=== PATIENT | female | born 1995 | race Hispanic/Latino ===

== ENCOUNTER 2017-07-16 22:03 | Outpatient (CLI) | payer MEDICAID ==
[2017-07-16 22:20] VITALS: BP 118/71
[2017-07-16] MEDS ORDERED: LACTATED RINGERS 500 ML IV ONE (22:24)
[2017-07-16 23:03] LABS: Bilirubin,Urine NEG (Negative); Blood,Urine NEG (Negative); Color,Urine Yellow (Yellow); Mucus,Urine FEW /HPF; Nitrite,Urine NEG (Negative); Protein,Urine <15 mg/dL mg/dL (Negative)
== END 2017-07-16 23:28 | disposition home or self-care (01) ==
LOC: TRG 22:03
PROVIDERS: ATTEND Obstetrics & Gynecology
DX: O42.92 Full-term premature rupture of membranes, unspecified as to length of time between rupture and onset of labor (principal); O26.893 Other specified pregnancy related conditions, third trimester; Z3A.31 31 weeks gestation of pregnancy
CPT/HCPCS: 59025; 81001

== ENCOUNTER 2017-09-19 13:47 | Outpatient (CLI) | payer MEDICAID ==
[2017-09-19 14:38] VITALS: BP 109/63
[2017-09-19] MEDS ORDERED: VISTARIL PO PRN (17:46)
[2017-09-19] MEDS ORDERED: VISTARIL ONE (17:51)
== END 2017-09-19 17:56 | disposition home or self-care (01) ==
LOC: TRG 13:47
PROVIDERS: ATTEND Obstetrics & Gynecology
DX: O48.0 Post-term pregnancy (principal); Z3A.40 40 weeks gestation of pregnancy
CPT/HCPCS: 59025; Q0177

== ENCOUNTER 2017-09-20 04:33 | Inpatient (IN) | payer MEDICAID ==
[2017-09-20] MEDS ORDERED: NORMOSOL-R PH 7.4 1,000 ML IV ONE (05:03)
[2017-09-20] MEDS ORDERED: PITOCin/NS 20 UNIT/1000ML DRIP 20 UNITS/1,000 ML BAG IV SCH (06:00)
[2017-09-20] MEDS: NORMOSOL-R PH 7.4 1,000 ML IV SCH ×2 (06:11→08:26)
[2017-09-20 06:16] LABS: Hematocrit 32.9 % (30.3-42.9); Hemoglobin 10.2 gm/dl (10.1-14.3); Mean Corpuscular HGB Conc 31 % (30-34); Mean Corpuscular Volume 77 fl (79-97); Platelet Count 273 K/mm3 (140-440); Red Blood Count 4.27 M/mm3 (3.65-5.03)
[2017-09-20 06:30] LABS: Mean Corpuscular Hemoglobin 24 pg (28-32)
[2017-09-20] MEDS ORDERED: XYLOCAINE MPF 2% ONE (07:23)
--- NOTE | 2017-09-20 07:38 | Anesthesia Consultation ---
Anesthesia Consult and Med Hx Date of service: 09/20/17 - Airway Anesthetic Teeth Evaluation: Good ROM Head & Neck: Adequate Mental/Hyoid Distance: Adequate Mallampati Class: Class I Intubation Access Assessment: Good - Pulmonary Exam CTA: Yes - Cardiac Exam Cardiac Exam: RRR - Pre-Operative Health Status ASA Pre-Surgery Classification: ASA2 - Pulmonary Hx Asthma: No COPD: No Hx Pneumonia: No - Cardiovascular System Hx Hypertension: No - Central Nervous System Hx Seizures: No Hx Psychiatric Problems: No - Endocrine Hx Renal Disease: No Hx End Stage Renal Disease: No Hx Hypothyroidism: No Hx Hyperthyroidism: No - Hematic Hx Anemia: No Hx Sickle Cell Disease: No - Other Systems Hx Alcohol Use: No
--- NOTE | 2017-09-20 07:39 | Anesthesia Day of Surgery ---
Anesthesia Day of Surgery - Day of Surgery Patient Examined: Yes Patient H&P Reviewed: Yes Patient is NPO: Yes
[2017-09-20] MEDS ORDERED: fentaNYL-BUPIV 2 MCG/ML-0.125% 200 MCG/100 ML BAG EPIDURAL SCH (08:00)
[2017-09-20] MEDS ORDERED: NARCAN 2 MG/2 ML IV PRN (08:00)
[2017-09-20] MEDS ORDERED: ePHEDrine SULFATE IV PRN (08:00)
--- NOTE | 2017-09-20 08:08 | History and Physical Report ---
History of Present Illness Date of examination: 09/20/17 Date of admission: 09/20/17 05:20 History of present illness: 22 yo second trimester U/S scan EDC 09/13/17 @ 41 weeks gestation, presented last night active labor. Progressed to 6cm. Recently received epidural anesthesia. First trimester entry at 11 weeks gestation. course complicated by nausea and vomiting with Diiclegis, Obesity with NL early and second trimester GCT. 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 Rubella non-immune and GBS negative. Past History Past Medical History: no pertinent history Past Surgical History: no surgical history [employer] History: herpes Family/Genetic History: diabetes, hypertension - Obstetrical History : 2 Medications and Allergies Allergies Allergy/AdvReac Type Severity Reaction Status Date / Time No Known Allergies Allergy Verified 06/30/15 01:34 Home Medications Medication Instructions Recorded Confirmed Last Taken Type No Known Home Medications [No 09/20/17 09/20/17 Unknown History Reported Home Medications] Active Meds: Active Medications Ephedrine Sulfate (Ephedrine Sulfate) 10 mg IV Q2M PRN PRN Reason: Hypotension Parenteral Electrolytes (Normosol-R Ph 7.4) 1,000 mls @ 125 mls/hr IV DIRECT EDUARDO Last Admin: 09/20/17 06:11 Dose: 999 mls/hr Oxytocin/Sodium Chloride (Pitocin/Ns 20 Unit/1000ml Drip) 20 units in 1,000 mls @ 125 mls/hr IV DIRECT EDUARDO Fentanyl/Bupivacaine/Sodium Chlor (Fentanyl-Bupiv 2 Mcg/Ml-0.125%) 200 mcg in 100 mls @ 12 mls/hr EPIDURAL TITR EDUARDO; Protocol Naloxone HCl (Narcan 2 Mg/2 Ml) 0.2 mg IV Q5M PRN PRN Reason: Respiratory sedation Review of Systems All systems: negative Genitourinary: normal appearance, leakage of fluid, contractions, no vaginal bleeding, no genital sores - Vital Signs Vital signs: Vital Signs Temp Resp 97.5 F L 18 09/20/17 04:39 09/20/17 04:39 Temp Pulse Resp BP Pulse Ox 99.6 F 103 H 20 98/58 09/20/17 05:40 09/20/17 08:04 09/20/17 05:40 09/20/17 08:04 - Physical Exam Breasts: Positive: deferred Abdomen: Positive: normal appearance, soft Genitourinary (Female): Positive: normal external genitalia, normal perenium. Negative: perineal/vulvar lesions Vagina: Positive: normal moisture - Obstetrical FHR: category 2 FHR comments: Category 2, minimal variability, tachycardia Multiple doses of ephedrine given post epidural for hypotension Cervical Dilatation: 7 Cervical Effacement Percentage: 80 station: -2 Uterine Contraction Pattern: Irregular Uterine Tone Measurement Phase: Resting Uterine Contraction Intensity: Mild Results Result Diagrams: 09/20/17 05:00 Abnormal lab results 09/20/17 Range/Units 05:00 WBC 16.0 H (4.5-11.0) K/mm3 MCV 77 L (79-97) fl MCH 24 L (28-32) pg RDW 17.0 H (13.2-15.2) % All other labs normal. Assessment and Plan A: IUP at 41 weeks Transitional Labor P: Pitocin augmentation [address]
[2017-09-20] MEDS ORDERED: PITOCin/NS 30 UNIT/500ML 30 UNITS/500 ML BAG IV SCH (09:00)
--- NOTE | 2017-09-20 10:35 | Procedure Note ---
OB Delivery Note - Delivery Date of Delivery: 09/20/17 (7-2oz female @ 1018) Surgeon: ANGELITO GARCES Estimated blood loss: 100cc - Vaginal Delivery presentation: vertex Delivery position: OA Intrapartum events: decreased FHT variability, extend. tachycardia, shoulder dystocia (deliveryed vtx at end of contraction, minimal maternal effort with delivery of shoulders. Dystocia [place] initiated including suprapubic pressure and Ruben for successful delivery of right shoulder in approximately one minute) Delivery induction: none Delivery augmentation: rupture of membranes, pitocin Delivery monitor: external FHT, external uterine Route of delivery: Delivery placenta: spontaneous Delivery cord: 3 umbilical vessels Episiotomy: none Delivery laceration: none Anesthesia: epidural - Infant A at 1 minute: 7 Infant Gender: Female (Pushed for viable female, dystocia as noted. Stimulated to cry, bulb suctioned and placed skin to skin. NICU team present at delivery. Spont. placenta. Pitocin infusing, cord blood collected. Fundus messaged firm, bleeding small. No lacerations noted. Infant moves and flexes right arm freely without limitations.)
[2017-09-20] MEDS ORDERED: TUCKS PAD TP PRN (10:43)
[2017-09-20] MEDS ORDERED: LANSINOH TP PRN (10:43)
[2017-09-20] MEDS ORDERED: NORCO 5/325 PO PRN (10:43)
[2017-09-20] MEDS ORDERED: BENADRYL PO PRN (10:43)
[2017-09-20] MEDS ORDERED: DULCOLAX PR PRN (10:43)
[2017-09-20] MEDS ORDERED: PHENERGAN PO PRN (10:43)
[2017-09-20] MEDS ORDERED: TYLENOL PO PRN (10:43)
[2017-09-20] MEDS ORDERED: PHENERGAN PR PRN (10:43)
[2017-09-20] MEDS ORDERED: SODIUM CHLORIDE FLUSH SYRINGE 10 ML IV SCH (11:00)
[2017-09-20] MEDS ORDERED: MOTRIN PO PRN (11:00)
[2017-09-20] MEDS: MOTRIN PO SCH ×2 (16:07→23:56)
[2017-09-21 00:28] LABS: Hematocrit 28.5 % (30.3-42.9)
--- NOTE | 2017-09-21 06:28 | Progress Note ---
Assessment and Plan A/P PPD 1 s/p doing well, vss , bleeding decreased ambulating well bonding with baby unsure of control h/h 10.2/32.9-9.0/28.5, iron d/c home tomorrow Subjective - Subjective Date of service: 09/21/17 Principal diagnosis: s/p Patient reports: appetite normal, voiding normally, pain well controlled, ambulating normally [place]: doing well Objective - Vital Signs Latest vital signs: Vital Signs Temp Pulse Resp BP BP Pulse Ox 09/21/17 00:00 98.6 F 67 18 102/78 09/20/17 20:00 98.6 F 63 16 111/69 09/20/17 17:03 97.7 F 84 20 114/74 98 09/20/17 14:23 79 109/65 09/20/17 12:10 99.1 F 85 18 116/73 09/20/17 11:30 81 103/67 103/67 09/20/17 11:15 80 102/68 102/68 09/20/17 11:00 77 107/60 09/20/17 10:45 75 106/56 106/56 09/20/17 10:43 104 H 107/58 09/20/17 10:40 97.6 F 77 16 107/58 98 09/20/17 10:30 115 H 106/56 09/20/17 10:24 14 104/56 09/20/17 10:15 134 H 105/61 09/20/17 10:00 115 H 110/55 09/20/17 09:46 97 H 122/66 09/20/17 09:30 114 H 98/54 09/20/17 09:16 101 H 113/74 09/20/17 09:00 104 H 104/63 09/20/17 08:45 106 H 109/67 09/20/17 08:30 101 H 111/67 09/20/17 08:20 98.2 F 98 H 14 100/60 10 L 09/20/17 08:12 98 H 100/60 09/20/17 08:08 88 105/62 09/20/17 08:04 103 H 98/58 09/20/17 07:59 76 104/58 09/20/17 07:57 90 85/54 09/20/17 07:53 82 85/54 03/15/18 07:51 72 61/30 09/20/17 07:49 82 72/40 09/20/17 07:47 77 52/26 09/20/17 07:46 83 58/26 09/20/17 07:33 103 H 101/58 Intake and Output 09/20/17 09/20/17 09/21/17 15:59 23:59 07:59 Intake Total 240 540 300 Output Total 200 Balance 240 340 300 Intake: Oral 240 240 Intake, Free Water 300 300 Output: Urine 200 Void 200 Other: Total, Intake Amount 240 240 Total, Output Amount 200 # Voids Void 1 2 Estimated Blood Loss 100 - Exam Breasts: Present: normal Cardiovascular: Present: Regular rate, Normal S1 Lungs: Present: Clear to auscultation, Normal air movement Abdomen: Present: normal appearance, soft, normal bowel sounds. Absent: distention, tenderness, guarding Vulva: both: normal Uterus: Present: normal, firm, fundal height below umbilicus. Absent: bogginess , tenderness Extremities: Present: normal Deep Tendon Reflex Grade: Normal +2 - Labs Labs: Abnormal lab results 09/20/17 09/21/17 Range/Units 05:00 00:04 WBC 16.0 H (4.5-11.0) K/mm3 Hgb 9.0 L (10.1-14.3) gm/dl Hct 28.5 L (30.3-42.9) % MCV 77 L (79-97) fl MCH 24 L (28-32) pg RDW 17.0 H (13.2-15.2) %
--- NOTE | 2017-09-21 06:30 | Discharge Summary ---
Providers - Providers Date of Admission: 09/20/17 05:20 Date of discharge: 09/22/17 Attending physician: GIANNA FOX MD Primary care physician: GIANNA FOX MD Hospitalization Reason for admission: active labor Delivery: Episiotomy: none Laceration: none Other procedures: none complications: none Discharge diagnosis: IUP at term delivered baby: female Hospital course: unremarkable hospital course Condition at discharge: Good Disposition: DC-01 TO HOME OR SELFCARE Plan - Provider Discharge Summary Activity: routine, no sex for 6 weeks, no strenuous exercise Diet: routine Instructions: routine Additional instructions: [] Smoking cessation referral if applicable(refer to patient education folder for contact #) [] Refer to [facility] Booklet Call your doctor immediately for: * Fever > 100.5 * Heavy vaginal bleeding ( >1 pad per hour) * Severe persistent headache * Shortness of breath * Reddened, hot, painful area to leg or breast * Drainage or odor from incision. * Keep incision clean and dry at all times and follow doctor's instructions regarding bathing/showering - Follow up plan Follow up: GIANNA FOX MD [Primary Care Provider] - 10/18/17
[2017-09-21] MEDS ORDERED: PRENATAL VITAMIN PO SCH (10:00)
[2017-09-22] MEDS: MOTRIN PO SCH ×2 (00:04→05:35)
[2017-09-22 09:54] VITALS: BP 109/75
== END 2017-09-22 12:00 | disposition home or self-care (01) | DRG 774 ==
LOC: TRG 04:33 → LD 05:20 → OB 14:51
PROVIDERS: ADMIT Obstetrics & Gynecology; ATTEND Obstetrics & Gynecology
PROC: 10E0XZZ Delivery of Products of Conception, External Approach (ICD-10-PCS; principal; 2017-09-20)
PROC: 3E0R3BZ Introduction of Anesthetic Agent into Spinal Canal, Percutaneous Approach (ICD-10-PCS; 2017-09-20)
PROC: 00HU33Z Insertion of Infusion Device into Spinal Canal, Percutaneous Approach (ICD-10-PCS; 2017-09-20)
DX: O76 Abnormality in fetal heart rate and rhythm complicating labor and delivery (principal); O98.32 Other infections with a predominantly sexual mode of transmission complicating childbirth; O66.0 Obstructed labor due to shoulder dystocia; Z3A.41 41 weeks gestation of pregnancy; Z37.0 Single live birth; A60.00 Herpesviral infection of urogenital system, unspecified; O99.214 Obesity complicating childbirth; E66.9 Obesity, unspecified; Z68.34 Body mass index [BMI] 34.0-34.9, adult
CPT/HCPCS: 36415; 85014; 85018; 85027; 86592; 86850; 86900; 86901; 99211; G0463; J2590; Q0169

== ENCOUNTER 2019-05-07 11:54 | Outpatient (CLI) | payer MEDICAID, OTHER ==
[2019-05-07 12:20] VITALS: BP 110/70
--- NOTE | 2019-05-07 13:40 | Ultrasound Report ---
ULTRASOUND OBSTETRIC LIMITED ULTRASOUND BIOPHYSICAL PROFILE INDICATION / CLINICAL INFORMATION: well being. COMPARISON: None available. FINDINGS: BREATHING MOVEMENT = 2 GROSS BODY MOVEMENT = 2 TONE = 2 QUALITATIVE AMNIOTIC FLUID VOLUME = 2 TOTAL BIOPHYSICAL SCORE = 8/8 AMNIOTIC FLUID INDEX (cm) = 14.0 PRESENTATION: Cephalic. HEART RATE (beats per minute): 141 ADDITIONAL FINDINGS: None. IMPRESSION: 1. Biophysical Score = 8/8 Signer Name: Denny Hooker MD Signed: 05/07/2019 1:35 PM Workstation Name: [id number]
== END 2019-05-07 14:09 | disposition home or self-care (01) ==
LOC: TRG 11:54
PROVIDERS: ATTEND Obstetrics & Gynecology
DX: O47.03 False labor before 37 completed weeks of gestation, third trimester (principal); Z3A.36 36 weeks gestation of pregnancy
CPT/HCPCS: 76815; 76819

== ENCOUNTER 2019-05-26 15:50 | Inpatient (IN) | payer OTHER ==
[2019-05-26] MEDS ORDERED: fentaNYL 100 MCG/2 ML INJ IV PRN (17:02)
[2019-05-26] MEDS ORDERED: MINERAL OIL 30 ML ORAL LIQD PO PRN (17:02)
[2019-05-26] MEDS ORDERED: ONDANSETRON 4 MG/2 ML INJ IV PRN (17:02)
[2019-05-26] MEDS ORDERED: ePHEDrine SULFATE 50 MG/1 ML INJ IV PRN ×2 (17:02→20:56)
[2019-05-26] MEDS ORDERED: NALOXONE 0.4 MG/1 ML INJ IV PRN (17:02)
[2019-05-26] MEDS ORDERED: TERBUTALINE 1 MG/1 ML INJ SUB-Q PRN (17:02)
[2019-05-26] MEDS ORDERED: TERBUTALINE 1 MG/1 ML INJ IVP PRN (17:02)
[2019-05-26] MEDS ORDERED: OXYTOCIN 20 UNIT/1000ML DRIP 20 UNITS/1,000 ML BAG IV SCH (18:00)
[2019-05-26] MEDS ORDERED: LIDOCAINE (2%) 20 MG/1 ML VIAL 20 ML MDV INFILTRATI ONE (18:02)
[2019-05-26] MEDS ORDERED: BUTORPHANOL 2 MG/1 ML INJ IV PRN (18:02)
[2019-05-26] MEDS: LACTATED RINGERS 1,000 ML IV SCH ×3 (18:50→22:16)
[2019-05-26] MEDS ORDERED: OXYTOCIN DRIP 30 UNITS/500 ML BAG IV SCH (19:00)
[2019-05-26 19:42] LABS: Hematocrit 31.1 % (30.3-42.9); Hemoglobin 9.9 gm/dl (10.1-14.3); Mean Corpuscular Volume 80 fl (79-97)
[2019-05-26 19:43] LABS: Mean Corpuscular HGB Conc 32 % (30-34); Mean Platelet Volume 10.8 fl (6-12); Platelet Count 202 K/mm3 (140-440); Red Cell Distribution Width 16.6 % (13.2-15.2)
[2019-05-26] MEDS ORDERED: NALOXONE 2 MG/2 ML INJ IV PRN (20:56)
--- NOTE | 2019-05-26 20:56 | Anesthesia Consultation ---
Anesthesia Consult and Med Hx Date of service: 05/26/19 - Airway Anesthetic Teeth Evaluation: Good ROM Head & Neck: Adequate Mental/Hyoid Distance: Adequate Mallampati Class: Class II Intubation Access Assessment: Probably Good - Pulmonary Exam CTA: Yes - Cardiac Exam Cardiac Exam: RRR - Pre-Operative Health Status ASA Pre-Surgery Classification: ASA2 Proposed Anesthetic Plan: Epidural - Pulmonary Hx Asthma: No COPD: No Hx Pneumonia: No - Cardiovascular System Hx Hypertension: No - Central Nervous System Hx Seizures: No Hx Psychiatric Problems: No - Endocrine Hx Renal Disease: No Hx End Stage Renal Disease: No Hx Hypothyroidism: No Hx Hyperthyroidism: No - Hematic Hx Anemia: No Hx Sickle Cell Disease: No - Other Systems Hx Alcohol Use: No
[2019-05-26] MEDS ORDERED: fentaNYL-BUPIV 2 MCG/ML-0.125% 200 MCG/100 ML BAG EPIDURAL SCH (21:00)
[2019-05-26] MEDS ORDERED: EPINEPHrine 1:10,000 1 MG/10 ML SYRINGE ONE (21:23)
--- NOTE | 2019-05-26 22:23 | History and Physical Report ---
History of Present Illness Date of examination: 05/26/19 Chief complaint: my water broke History of present illness: Pt is a 24 year old female KORY 06/04/19 at 38w5d who presents for direct admission from the office after diagnosis of SROM. Pt reports leakage of fluid since 1430 pm. She reports irregular contractions and denies vaginal bleeding. She has had care at [facility] since 16 wks complicated by genital herpes without lesion or prodrome and limited anatomy scan s/p MFM referral. She is GBS negative. Past History Past Medical History: no pertinent history Past Surgical History: other (drainage of pericardial fluid at age 10 ) Family/Genetic History: diabetes, hypertension Social history: no significant social history - Obstetrical History Expected Date of Delivery: 06/04/19 Actual Gestation: 38 Week(s) 5 Day(s) : 3 Para: 2 Hx # Term Pregnancies: 2 Number of Pregnancies: 0 Spontaneous Abortions: 0 Induced : 0 Number of Living Children: 2 Medications and Allergies Allergies Allergy/AdvReac Type Severity Reaction Status Date / Time No Known Allergies Allergy Verified 06/30/15 01:34 Home Medications Medication Instructions Recorded Confirmed Last Taken Type Multivitamin Tablet 1 tab PO DAILY 05/26/19 05/26/19 05/26/19 10:00 History Active Meds: Active Medications Butorphanol Tartrate (Stadol) 2 mg IV Q2H PRN PRN Reason: Pain , Severe (7-10) Ephedrine Sulfate (Ephedrine Sulfate) 10 mg IV Q2M PRN PRN Reason: Hypotension Last Admin: 05/26/19 21:20 Dose: 10 mg Documented by: Fentanyl (Sublimaze) 100 mcg IV Q2H PRN PRN Reason: Labor Pain Oxytocin/Sodium Chloride (Pitocin/Ns 20 Unit/1000ml Drip) 20 units in 1,000 mls @ 125 mls/hr IV DIRECT EDUARDO Oxytocin/Sodium Chloride (Pitocin/Ns 30 Unit/500ml) 30 units in 500 mls @ 2 mls/hr IV TITR EDUARDO; Protocol Last Titration: 05/26/19 22:17 Dose: 10 ml/hr, 10 mls/hr Documented by: Lactated Ringer's (Lactated Ringers) 1,000 mls @ 125 mls/hr IV DIRECT EDUARDO Last Admin: 05/26/19 22:16 Dose: 125 mls/hr Documented by: Fentanyl/Bupivacaine/Sodium Chlor (Fentanyl-Bupiv 2 Mcg/Ml-0.125%) 200 mcg in 100 mls @ 12 mls/hr EPIDURAL TITR [facility]; Protocol Last Admin: 05/26/19 21:55 Dose: 12 mls/hr Documented by: Mineral Oil (Mineral Oil) 30 ml PO QHS PRN PRN Reason: Constipation Naloxone HCl (Naloxone) 0.2 mg IV Q5M PRN PRN Reason: Respiratory sedation Ondansetron HCl (Zofran) 4 mg IV Q8H PRN PRN Reason: Nausea And Vomiting Terbutaline Sulfate (Brethine) 0.25 mg SUB-Q ONCE PRN PRN Reason: Hyperstimulation/Hypertonicity Terbutaline Sulfate (Brethine) 0.25 mg IVP ONCE PRN PRN Reason: Hyperstimulation/Hypertonicity Review of Systems All systems: negative - Vital Signs Vital signs: Vital Signs Pulse BP Pulse Ox 99 H 124/59 97 05/26/19 17:00 05/26/19 17:00 05/26/19 17:00 Temp Pulse Resp BP Pulse Ox 97.8 F 98 H 16 115/64 96 05/26/19 19:04 05/26/19 22:16 05/26/19 19:04 05/26/19 22:16 05/26/19 22:12 - Physical Exam Breasts: Positive: deferred Cardiovascular: Regular rate Lungs: Positive: Clear to auscultation Abdomen: Positive: soft (obese, gravid ) Uterus: Positive: enlarged (gravid ) Extremities: Positive: edema (trace) - Obstetrical FHR: auscultation normal Uterine Contraction Monitor Mode: External Cervical Dilatation: 4.5 Cervical Effacement Percentage: 70 station: -2 Uterine Contraction Pattern: Irregular Uterine Tone Measurement Phase: Resting Uterine Contraction Intensity: Moderate Results Result Diagrams: 05/26/19 18:30 Abnormal lab results 05/26/19 Range/Units 18:30 Hgb 9.9 L (10.1-14.3) gm/dl MCH 26 L (28-32) pg RDW 16.6 H (13.2-15.2) % All other labs normal. Assessment and Plan A: IUP at 38w5d SROM Latent Labor Obesity Genital Herpes without lesion or prodrome GBS negative P: Admit to labor and delivery Routine intrapartum care Pitocin augmentation Closely monitor maternal and status
--- NOTE | 2019-05-26 23:32 | Event Note ---
Date: 05/26/19 Pt reports increasing pelvic pressure. Category II Tracing. SVE: 5.5/70/-2. IUPC placed. Continue pitocin augmentation and routine intrapartum care.
[2019-05-27] MEDS ORDERED: LIDOCAINE (2%) 20 MG/1 ML VIAL 20 ML MDV INFILTRATI ONE (00:23)
[2019-05-27] MEDS: LACTATED RINGERS 1,000 ML IV SCH (01:57)
[2019-05-27] MEDS ORDERED: METHYLERGONOVINE MALEATE 0.2 MG/ML VIAL IM ONE (02:20)
--- NOTE | 2019-05-27 02:31 | Procedure Note ---
OB Delivery Note - Delivery Date of Delivery: 05/27/19 Surgeon: ERIK DENIS Estimated blood loss: 500cc - Vaginal Delivery presentation: vertex Delivery position: OA Intrapartum events: PROM->1hr before delivery, meconium, mult.variable deceleratio, uterine atony (Methergine 0.2 mg IM ) Delivery augmentation: pitocin Delivery monitor: external FHT, internal uterine Route of delivery: Delivery placenta: spontaneous Delivery cord: 3 umbilical vessels Episiotomy: none Delivery laceration: none Anesthesia: epidural - A at 1 minute: 8 at 5 minutes: 9 Infant Gender: Male (3105g (6lb 14 oz) @ 0214 am)
[2019-05-27] MEDS ORDERED: ONDANSETRON 4 MG/2 ML INJ IV PRN (03:01)
[2019-05-27] MEDS ORDERED: BENZOCAINE/MENTHOL 20/0.5% TOP SPRAY 56 GM TP PRN (03:01)
[2019-05-27] MEDS ORDERED: PROMETHAZINE 25 MG RECT SUPP PR PRN (03:01)
[2019-05-27] MEDS ORDERED: MAGNESIUM HYDROXIDE (MOM) ORAL LIQD UDC PO PRN (03:01)
[2019-05-27] MEDS ORDERED: LANOLIN/ZINC/DIMETHICONE (LANSINOH) 7 GM TP PRN ×2 (03:01)
[2019-05-27] MEDS ORDERED: PROMETHAZINE 25 MG TAB PO PRN (03:01)
[2019-05-27] MEDS ORDERED: HYDROcodone/ACETAMINOPHEN 5-325 MG TAB PO PRN (03:01)
[2019-05-27] MEDS ORDERED: IBUPROFEN 600 MG TAB PO SCH (03:01)
[2019-05-27] MEDS ORDERED: ACETAMINOPHEN 325 MG TAB PO PRN (03:01)
[2019-05-27] MEDS ORDERED: diphenhydrAMINE 25 MG CAP PO PRN (03:01)
[2019-05-27] MEDS ORDERED: WITCH HAZEL/ GLYCERIN PAD TP PRN (03:01)
[2019-05-27] MEDS: IBUPROFEN 600 MG TAB PO SCH ×3 (03:20→17:58)
[2019-05-27] MEDS: FERROUS SULFATE 325 MG TAB PO SCH (09:22)
[2019-05-27 14:49] LABS: Hematocrit 29.9 % (30.3-42.9); Hemoglobin 9.3 gm/dl (10.1-14.3)
[2019-05-28] MEDS: FERROUS SULFATE 325 MG TAB PO SCH ×3 (05:16→21:53)
[2019-05-28] MEDS ORDERED: MEASLES, MUMPS & RUBELLA 12,500 UNIT/0.5 ML VACCINE SUB-Q ONE (06:00)
[2019-05-28] MEDS ORDERED: TETANUS,DIPH,PERTUSS(ACELL) VACCINE 0.5 ML SYRINGE IM ONE (06:00)
[2019-05-28] MEDS: IBUPROFEN 600 MG TAB PO SCH ×4 (08:55→21:53)
--- NOTE | 2019-05-28 13:16 | Progress Note ---
Assessment and Plan PPD1 s/p Vital signs stable Acute on chronic anemia- ferrous sulfate D/c to home tomorrow Subjective - Subjective Date of service: 05/28/19 Principal diagnosis: s/p Interval history: Pt is PPD1 s/p Patient reports: appetite normal, voiding normally, pain well controlled, ambulating normally [place]: doing well, bottle feeding Objective - Vital Signs Latest vital signs: Vital Signs Temp Pulse Resp BP Pulse Ox 05/28/19 08:04 97.9 F 61 18 117/79 98 05/27/19 23:54 97.8 F 73 20 119/81 98 05/27/19 17:05 97.8 F 69 18 129/79 98 Intake and Output 05/27/19 05/28/19 05/28/19 23:59 07:59 15:59 Intake Total 240 Balance 240 Intake: Oral 240 Other: Total, Intake Amount 240 # Voids Void 1 - Exam Lungs: Present: Normal air movement Abdomen: Present: normal appearance Uterus: Present: normal, firm, fundal height below umbilicus Extremities: Present: normal - Labs Labs: Abnormal lab results 05/27/19 Range/Units 14:24 Hgb 9.3 L (10.1-14.3) gm/dl Hct 29.9 L (30.3-42.9) %
--- NOTE | 2019-05-28 13:24 | Discharge Summary ---
Providers - Providers Date of Admission: 05/26/19 17:02 Date of discharge: 05/29/19 Attending physician: ERIK DENIS Primary care physician: ERIK DENIS Hospitalization Reason for admission: rupture of membranes Delivery: Episiotomy: none Laceration: none Other procedures: none complications: uterine atony (Methergine IM and Pitocin IV) Discharge diagnosis: IUP at term delivered Hospital course: Pt arrived directly from office for admission for SROM. Augmentation of labor progressed to of viable infant. Acute on chronic anemia. Met d/c criteria on PPD1. Condition at discharge: Good Disposition: DC-01 TO HOME OR SELFCARE Plan - Discharge Medications Prescriptions: Ferrous Sulfate [Feosol 325 MG tab] 325 mg PO BID #60 tablet Ibuprofen [Motrin] 600 mg PO Q6H PRN #60 tablet PRN Reason: Pain - Provider Discharge Summary Activity: routine, no sex for 6 weeks, no heavy lifting 4 weeks, no strenuous exercise Diet: routine Instructions: routine Additional instructions: [] Smoking cessation referral if applicable(refer to patient education folder for contact #) [] Refer to [facility] Booklet Call your doctor immediately for: * Fever > 100.5 * Heavy vaginal bleeding ( >1 pad per hour) * Severe persistent headache * Shortness of breath * Reddened, hot, painful area to leg or breast * Drainage or odor from incision. * Keep incision clean and dry at all times and follow doctor's instructions regarding bathing/showering - Follow up plan Follow up: ERIK DENIS MD [Primary Care Provider] - 06/24/19 (Please call [facility] to schedule visit at 4 weeks )
[2019-05-29] MEDS: IBUPROFEN 600 MG TAB PO SCH ×3 (05:40→09:57)
[2019-05-29] MEDS: FERROUS SULFATE 325 MG TAB PO SCH (09:58)
[2019-05-29 14:30] VITALS: BP 120/62
== END 2019-05-29 14:30 | disposition home or self-care (01) | DRG 774 ==
LOC: TRG 15:50 → LD 15:52 → TRG 17:02 → LD 17:02 → OB 05-27 04:10
PROVIDERS: ADMIT Obstetrics & Gynecology; ATTEND Obstetrics & Gynecology
PROC: 10H07YZ Insertion of Other Device into Products of Conception, Via Natural or Artificial Opening (ICD-10-PCS; 2019-05-26)
PROC: 10E0XZZ Delivery of Products of Conception, External Approach (ICD-10-PCS; principal; 2019-05-27)
PROC: 3E0R3BZ Introduction of Anesthetic Agent into Spinal Canal, Percutaneous Approach (ICD-10-PCS; 2019-05-27)
PROC: 00HU33Z Insertion of Infusion Device into Spinal Canal, Percutaneous Approach (ICD-10-PCS; 2019-05-27)
PROC: 3E0234Z Introduction of Serum, Toxoid and Vaccine into Muscle, Percutaneous Approach (ICD-10-PCS; 2019-05-28)
DX: O42.92 Full-term premature rupture of membranes, unspecified as to length of time between rupture and onset of labor (principal); O98.32 Other infections with a predominantly sexual mode of transmission complicating childbirth; O99.02 Anemia complicating childbirth; O76 Abnormality in fetal heart rate and rhythm complicating labor and delivery; O99.214 Obesity complicating childbirth; O77.0 Labor and delivery complicated by meconium in amniotic fluid; A60.00 Herpesviral infection of urogenital system, unspecified; O75.89 Other specified complications of labor and delivery; Z3A.38 38 weeks gestation of pregnancy; Z37.0 Single live birth; Z23 Encounter for immunization; Z82.49 Family history of ischemic heart disease and other diseases of the circulatory system; Z83.3 Family history of diabetes mellitus
CPT/HCPCS: 36415; 59025; 81001; 85014; 85018; 85027; 86850; 86900; 86901; 87086; 90471; 90715; 96360; 96365; G0378; J0171; J0696; J2210; J2590; J7120